=== PATIENT | male | born 1960 | race Caucasian/White ===

== ENCOUNTER 2021-11-14 12:31 | Outpatient (CLI) | payer BC | END 2021-11-14 12:32 | disposition home or self-care (01) | LOC: CSHWCC 12:31 | PROVIDERS: ATTEND Nurse Practitioner Family | DX: T81.89XD Other complications of procedures, not elsewhere classified, subsequent encounter (principal) | CPT/HCPCS: 97607; 99203; G0463 ==

== ENCOUNTER 2021-11-21 12:50 | Outpatient (CLI) | payer BC | END 2021-11-21 12:51 | disposition home or self-care (01) | LOC: CSHWCC 12:50 | PROVIDERS: ATTEND Nurse Practitioner Family | DX: T81.89XD Other complications of procedures, not elsewhere classified, subsequent encounter (principal) | CPT/HCPCS: 11042; 97607 ==

== ENCOUNTER 2021-11-24 08:16 | Outpatient (CLI) | payer BC | END 2021-11-24 08:17 | disposition home or self-care (01) | LOC: CSHWCC 08:16 | PROVIDERS: ATTEND Family Medicine | DX: T81.89XD Other complications of procedures, not elsewhere classified, subsequent encounter (principal) | CPT/HCPCS: 99213; G0463 ==

== ENCOUNTER 2021-11-28 08:09 | Outpatient (CLI) | payer BC | END 2021-11-28 08:10 | disposition home or self-care (01) | LOC: CSHWCC 08:09 | PROVIDERS: ATTEND Preventive Medicine Undersea and Hyperbaric Medicine | DX: T81.89XD Other complications of procedures, not elsewhere classified, subsequent encounter (principal) | CPT/HCPCS: 97607 ==

== ENCOUNTER 2021-12-01 11:02 | Outpatient (CLI) | payer BC | END 2021-12-01 11:03 | disposition home or self-care (01) | LOC: CSHWCC 11:02 | PROVIDERS: ATTEND Preventive Medicine Undersea and Hyperbaric Medicine | DX: T81.89XD Other complications of procedures, not elsewhere classified, subsequent encounter (principal) ==

== ENCOUNTER 2021-12-06 12:50 | Outpatient (CLI) | payer BC | END 2021-12-06 12:51 | disposition home or self-care (01) | LOC: CSHWCC 12:50 | PROVIDERS: ATTEND Preventive Medicine Undersea and Hyperbaric Medicine | DX: T81.89XD Other complications of procedures, not elsewhere classified, subsequent encounter (principal) | CPT/HCPCS: 99213; G0463 ==

== ENCOUNTER 2021-12-09 08:11 | Outpatient (CLI) | payer BC | END 2021-12-09 08:12 | disposition home or self-care (01) | LOC: CSHWCC 08:11 | PROVIDERS: ATTEND Preventive Medicine Undersea and Hyperbaric Medicine | DX: T81.89XD Other complications of procedures, not elsewhere classified, subsequent encounter (principal) | CPT/HCPCS: 99212; G0463 ==

== ENCOUNTER 2021-12-16 08:55 | Outpatient (CLI) | payer BC | END 2021-12-16 08:56 | disposition home or self-care (01) | LOC: CSHWCC 08:55 | PROVIDERS: ATTEND Preventive Medicine Undersea and Hyperbaric Medicine | DX: T81.89XD Other complications of procedures, not elsewhere classified, subsequent encounter (principal) ==